=== PATIENT | female | born 1990 | race Two or more races ===

== ENCOUNTER 2019-10-16 10:08 | Emergency (ER) | payer MEDICAID ==
[~2019-10-16] VITALS: Ht 154.9 cm; Wt 68.0 kg
[2019-10-16] MEDS ORDERED: NKM (10:16)
--- NOTE | 2019-10-16 10:22 | NUR ---
ED Nurse Note: patient walked into ED from home accompanied with her coworker, patient c/o chest pain on the epigastric/sternal area 9/10 sharp pain at this time, radiating with numbness on her left arm, since last night. patient is alert awake x4 ambulatory, breathing unlabored and even, speaking in full sentences. patient placed on a [employer] certified network professional, on a hospital gown, ekg done at bedside right away.
[2019-10-16 10:30] VITALS: BP 111/62
[2019-10-16] MEDS ORDERED: Acetaminophen 500mg (ES) tab ORAL ONE (10:30)
--- NOTE | 2019-10-16 10:30 | Emergency Room Report ---
History of Present Illness General Chief Complaint: Chest Pain Source: Patient Present Illness HPI 29-year-old female presents with left-sided chest pain, she points out 1 specific spot where it hurts slightly above her breast fourth chondral space, chest pain is not constant, not worse with exertion no shortness of breath, when she moves she has some pain that is sharp in nature severity is mild, intermittent no family history of cardiac disease, patient presents for evaluation Allergies: Coded Allergies: No Known Allergies (Unverified , 10/16/19) Patient History Past Medical History: see triage record Last Menstrual Period: September 11, 2019 Now: No : 1 Para: 1 Reviewed Nursing Documentation: PMH: Agreed; PSxH: Agreed Nursing Documentation-PMH Past Medical History: No Stated History Review of Systems All Other Systems: negative except mentioned in HPI Physical Exam Vital Signs Date Time Temp Pulse Resp B/P (MAP) Pulse Ox O2 Delivery O2 Flow Rate FiO2 10/16/19 10:12 97.9 72 18 137/72 (93) 98 Room Air Sp02 EP Interpretation: reviewed, normal General Appearance: well appearing, no apparent distress, alert Head: normocephalic, atraumatic Eyes: bilateral eye PERRL, bilateral eye EOMI ENT: uvula midline, moist mucus membranes Neck: supple, thyroid normal, supple/symm/no masses Respiratory: lungs clear, no respiratory distress, no retraction, no accessory muscle use Cardiovascular #1: normal peripheral pulses, regular rate, rhythm, no edema, no gallop, no murmur Gastrointestinal: non tender, soft, no guarding, no rebound Musculoskeletal: normal inspection Neurologic: alert, oriented x3 Psychiatric: mood/affect normal Skin: no rash, warm/dry Medical Decision Making Diagnostic Impression: Primary Impression: Chest pain Qualified Codes: R07.9 - Chest pain, unspecified ER Course 29 year old female presents with atypical chest pain, low susp for acs, pe, pneumonia cxr negative ekg negative PERC negative Dispo home w/ return precautions. Follow-up with PCP Laboratory Tests Test 10/16/19 10:20 Urine HCG, Qualitative Negative (NEGATIVE) EKG Diagnostic Results EKG Time: 10:23 EP Interpretation: NSR, rate 71, QTc 410, no acute ST elevations, normal axis Rhythm Strip Diag. Results Rhythm Strip Time: 10:30 EP Interpretation: yes Rate: 84 Rhythm: NSR, no PVC's, no ectopy Chest X-Ray Diagnostic Results Chest X-Ray Diagnostic Results : Chest X-Ray Ordered: Yes # of Views/Limited/Complete: 1 View Indication: Chest Pain EP Interpretation: Yes Interpretation: no consolidation, no effusion, no pneumothorax, no acute cardiopulmonary disease Impression: No acute disease Electronically Signed by: Ricki Glaser MD Last Vital Signs Date Time Temp Pulse Resp B/P (MAP) Pulse Ox O2 Delivery O2 Flow Rate FiO2 10/16/19 10:12 97.9 72 18 137/72 (93) 98 Room Air Disposition: HOME, SELF-CARE Condition: Stable Scripts Naproxen* (NAPROSYN*) 250 Mg Tablet 250 MG ORAL BID PRN for For Pain, #20 TAB 0 Refills Prov: Ricki Glaser MD 10/16/19 Referrals: [facility] Patient Instructions: Nonspecific Chest Pain Additional Instructions: The patient was provided with discharge instructions, notified to follow-up with a primary care doctor and or specialist in the next 24-48 hours, and to return to the ED if they have worsening of their symptoms. Please note that this report is being documented using [employer] technology. This can lead to erroneous entry secondary to incorrect interpretation by the dictating instrument. Ricki Glaser MD Oct 16, 2019 10:30
--- NOTE | 2019-10-16 10:53 | NUR ---
ED Nurse Note: cxr at bedside.
[2019-10-16] MEDS ORDERED: NAPROXEN250 MG ORAL (11:01)
[2019-10-16 11:09] VITALS: BP 105/59
[2019-10-16 11:13] VITALS: BP 105/59
--- NOTE | 2019-10-16 11:16 | NUR ---
ER DISCHARGE NOTE: Patient is cleared to be discharged per MEME Glaser, pt is aox4, on room air, with stable vital signs. pt was given dc and prescription instructions, pt was able to verbalize understanding, pt id band removed. pt is able to ambulate with steady gait. pt took all belongings.
--- NOTE | 2019-10-16 11:43 | Diagnostic Imaging Report ---
Indication: Chest pain Comparison: None A single view chest radiograph was obtained. Findings: Cardiomediastinal appearance is within normal limits for age. The lungs are clear. Pulmonary vascularity is appropriate. The diaphragmatic contour is smooth and costophrenic angles are sharp. No pleural effusions are identified. The bones are unremarkable. Impression: No acute findings
== END 2019-10-16 11:15 | disposition home or self-care (01) ==
LOC: EMR 10:25
DX: R07.9 Chest pain, unspecified (principal)
CPT/HCPCS: 71045; 81025; 93005; Z7502; 99283